=== PATIENT | male | born 1985 | race Asian ===

== ENCOUNTER 2017-04-07 12:19 | Emergency (ER) | payer OTHER ==
[~2017-04-07] VITALS: Ht 185.4 cm; Wt 84.8 kg
== END 2017-04-07 13:25 | disposition home or self-care (01) ==
LOC: ED 12:19
PROC: 0HQNXZZ Repair Left Foot Skin, External Approach (ICD-10-PCS; principal; 2017-04-07)
DX: S91.312A Laceration without foreign body, left foot, initial encounter (principal); X58.XXXA Exposure to other specified factors, initial encounter; Y92.410 Unspecified street and highway as the place of occurrence of the external cause
CPT/HCPCS: 90471; 90715; 99283; J7040